=== PATIENT | female | born 1985 | race American Indian/Alaskan Native ===

== ENCOUNTER 2016-06-22 11:23 | Inpatient (IN) | payer OTHER ==
[2016-06-22] MEDS ORDERED: LACTATED RINGERS 1,000 ML ONE (11:39)
[2016-06-22] MEDS ORDERED: MINERAL OIL PO PRN (11:46)
[2016-06-22] MEDS ORDERED: BRETHINE SUB-Q PRN (11:46)
[2016-06-22] MEDS ORDERED: ePHEDrine SULFATE IV PRN ×2 (11:46→16:00)
[2016-06-22] MEDS ORDERED: ZOFRAN IV PRN (11:46)
[2016-06-22] MEDS ORDERED: STADOL IV PRN (11:46)
[2016-06-22] MEDS ORDERED: SUBLIMAZE IV PRN (11:46)
[2016-06-22] MEDS ORDERED: BRETHINE IVP PRN (11:46)
[2016-06-22] MEDS ORDERED: XYLOCAINE 2% INFILTRATI ONE (11:46)
--- NOTE | 2016-06-22 11:53 | History and Physical Report ---
History of Present Illness Date of examination: 06/22/16 Date of admission: 06/22/16 11:23 Chief complaint: Labor History of present illness: 31 YO at 39.6 weeks in active labor. A patient of [employer] since 10 weeks. 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 GBS negative. Plans for cord blood banking. Past History Past Medical History: hematologic disorders (beta thalassemia minor) Past Surgical History: no surgical history Family/Genetic History: none Social history: single, full code. denies: smoking, alcohol abuse, prescription drug abuse, IV drug use - Obstetrical History Expected Date of Delivery: 06/23/16 Actual Gestation: 39 Week(s) 6 Day(s) : 2 Para: 1 Hx # Term Pregnancies: 1 Number of Pregnancies: 0 Spontaneous Abortions: 0 Induced : 0 Number of Living Children: 1 #1 Infant Gender: Male year: Birthweight: 8 lb 8 oz Method of Delivery: Vaginal Gestational age at delivery: 40 Complications: none Review of Systems All systems: negative - Physical Exam Cardiovascular: Regular rate Lungs: Positive: Normal air movement Vagina: Positive: normal moisture Extremities: Positive: normal Deep Tendon Reflex Grade: Normal +2 Results All other labs normal. Assessment and Plan A: IUP 39.6 weeks Beta thalassemia minor Category 1 tracing Desires epidural GBS negative P: Admit to L&D Pitocin augmentation Epidural/pain meds as desired.
[2016-06-22] MEDS ORDERED: PITOCin/NS 20 UNIT/1000ML DRIP 20 UNITS/1,000 ML BAG IV SCH (12:00)
[2016-06-22] MEDS ORDERED: PITOCin/NS 30 UNIT/500ML 30 UNITS/500 ML BAG IV SCH (12:00)
[2016-06-22 12:21] LABS: Hematocrit 34.1 % (30.3-42.9); Mean Corpuscular HGB Conc 32 % (30-34); Platelet Count 231 K/mm3 (140-440); Red Blood Count 5.51 M/mm3 (3.65-5.03); Red Cell Distribution Width 16.9 % (13.2-15.2); White Blood Count 8.1 K/mm3 (4.5-11.0)
[2016-06-22 12:25] LABS: Mean Corpuscular Hemoglobin 20 pg (28-32); Mean Corpuscular Volume 62 fl (79-97)
[2016-06-22] MEDS: LACTATED RINGERS 1,000 ML IV SCH ×2 (12:30→16:22)
[2016-06-22] MEDS ORDERED: ePHEDrine SULFATE ONE (13:15)
--- NOTE | 2016-06-22 14:14 | Ultrasound Report ---
OB LIMITED INDICATION: Presentation. COMPARISON: None similar at this institution. TECHNIQUE: Transabdominal grayscale ultrasound with Doppler interrogation. Gestation: Persaud Position: Cephalic Amniotic Fluid: WNL (7-24 cm) JOAO = 11.2 cm Heart Rate: 152 BPM
--- NOTE | 2016-06-22 15:48 | Anesthesia Consultation ---
Anesthesia Consult and Med Hx Date of service: 06/22/16 - Airway Anesthetic Teeth Evaluation: Good ROM Head & Neck: Adequate Mental/Hyoid Distance: Adequate Mallampati Class: Class II Intubation Access Assessment: Probably Good - Pre-Operative Health Status ASA Pre-Surgery Classification: ASA2 Proposed Anesthetic Plan: Epidural, Spinal - Pulmonary Hx Asthma: No COPD: No Hx Pneumonia: No - Cardiovascular System Hx Hypertension: No - Central Nervous System Hx Seizures: No Hx Psychiatric Problems: No - Endocrine Hx Renal Disease: No Hx End Stage Renal Disease: No Hx Hypothyroidism: No Hx Hyperthyroidism: No - Hematic Hx Anemia: Yes (Beta-talesemia) Hx Sickle Cell Disease: No - Other Systems Hx Alcohol Use: No
[2016-06-22] MEDS ORDERED: fentaNYL-BUPIV 2 MCG/ML-0.125% 200 MCG/100 ML BAG EPIDURAL SCH (16:00)
[2016-06-22] MEDS ORDERED: NARCAN 2 MG/2 ML IV PRN (16:00)
--- NOTE | 2016-06-22 20:06 | Procedure Note ---
OB Delivery Note - Delivery Date of Delivery: 06/22/16 (193) Surgeon: DEVAN GONZALES Estimated blood loss: 200cc - Vaginal Delivery presentation: vertex Delivery position: OA Intrapartum events: none Delivery induction: none Delivery augmentation: pitocin Delivery monitor: external FHT, external uterine Route of delivery: Delivery placenta: spontaneous Delivery cord: 3 umbilical vessels Episiotomy: none Delivery laceration: none Anesthesia: epidural Delivery comments: Baby júnior Fierro was delivered on 06/22/2016 @ 1930 over an intact perineum. Cord was clamped and cut and blood for cord blood banking with CBR collected. Placenta delivered raymond side presenting. weighed 7'10 with apgars of 9/9. Fundus firm, midline and 2 cm below umbilicus. Mother and baby doing well. EBL 200. - A at 1 minute: 9 at 5 minutes: 9 Infant Gender: Male
[2016-06-22] MEDS ORDERED: PHENERGAN PO PRN (21:46)
[2016-06-22] MEDS ORDERED: TYLENOL PO PRN (21:46)
[2016-06-22] MEDS ORDERED: MILK OF MAGNESIA PO PRN (21:46)
[2016-06-22] MEDS ORDERED: TUCKS PAD TP PRN (21:46)
[2016-06-22] MEDS ORDERED: LANSINOH TP PRN (21:46)
[2016-06-22] MEDS ORDERED: BENADRYL PO PRN (21:46)
[2016-06-22] MEDS ORDERED: DULCOLAX PR PRN (21:46)
[2016-06-22] MEDS ORDERED: SODIUM CHLORIDE FLUSH SYRINGE 10 ML IV NR (21:46)
[2016-06-22] MEDS ORDERED: DERMOPLAST TP PRN (21:46)
[2016-06-22] MEDS ORDERED: NORCO 5/325 PO PRN (21:46)
[2016-06-22] MEDS: MOTRIN PO SCH (22:50)
[2016-06-23] MEDS: MOTRIN PO SCH ×4 (06:02→20:38)
[2016-06-23 08:48] LABS: Hematocrit 28.8 % (30.3-42.9); Hemoglobin 9.3 gm/dl (10.1-14.3)
--- NOTE | 2016-06-23 10:15 | Progress Note ---
Assessment and Plan A: PP Day #1 Asymptomatic Anemia P: Follow Routine Orders D/C home in the AM RTO in one week for circumcision RTO in 6 Weeks for PP Exam Subjective - Subjective Date of service: 06/23/16 Patient reports: appetite normal, voiding normally, pain well controlled, flatus , ambulating normally : doing well Objective - Vital Signs Latest vital signs: Vital Signs Temp Pulse Pulse Resp BP BP Pulse Ox 06/23/16 08:48 97.6 F 74 20 109/60 06/23/16 04:00 98.6 F 70 16 116/72 06/23/16 00:00 98.6 F 65 16 110/65 06/22/16 22:29 98.6 F 77 16 111/58 06/22/16 20:51 83 96/52 06/22/16 20:37 75 105/55 06/22/16 20:21 88 102/85 06/22/16 20:06 81 97/56 06/22/16 19:38 94 H 179/66 06/22/16 19:24 85 98 06/22/16 19:19 99 H 98 06/22/16 19:14 87 98 06/22/16 19:11 97.8 F 82 20 112/65 99 06/22/16 19:09 86 100 06/22/16 19:08 83 112/65 06/22/16 19:04 83 99 06/22/16 18:59 76 98 06/22/16 18:54 83 98 06/22/16 18:49 82 100 06/22/16 18:44 85 99 06/22/16 18:39 81 100 06/22/16 18:38 80 110/62 06/22/16 18:34 79 100 06/22/16 18:29 78 100 06/22/16 18:24 81 99 06/22/16 18:19 80 99 06/22/16 18:14 81 100 06/22/16 18:09 75 118/62 100 06/22/16 18:04 75 99 06/22/16 17:59 75 99 06/22/16 17:54 84 99 06/22/16 17:49 78 100 06/22/16 17:44 71 99 06/22/16 17:39 79 100 06/22/16 17:38 78 107/55 06/22/16 17:34 74 99 06/22/16 17:29 76 99 06/22/16 17:24 79 99 06/22/16 17:19 78 99 06/22/16 17:14 77 100 06/22/16 17:09 81 99 06/22/16 17:04 75 99 06/22/16 17:00 76 109/59 06/22/16 16:59 77 99 06/22/16 16:54 80 89 06/22/16 16:49 80 98 06/22/16 16:46 82 93 06/22/16 16:44 80 96 06/22/16 16:40 78 106/56 06/22/16 16:39 79 96 06/22/16 16:34 76 98 06/22/16 16:29 78 100 06/22/16 16:24 78 98 06/22/16 16:19 78 107/55 98 06/22/16 16:14 72 98 06/22/16 16:12 76 106/58 06/22/16 16:09 92 H 98 06/22/16 16:07 75 103/56 06/22/16 16:04 77 107/57 98 06/22/16 15:59 80 98 06/22/16 15:58 137 H 119/54 06/22/16 15:54 78 114/53 96 06/22/16 15:49 87 97 06/22/16 15:48 81 110/58 06/22/16 15:43 84 98 06/22/16 15:42 82 110/60 06/22/16 15:40 79 107/62 06/22/16 15:39 89 98 06/22/16 15:38 86 101/64 06/22/16 15:36 69 100/58 06/22/16 15:34 77 101/58 100 06/22/16 15:32 85 102/59 06/22/16 15:30 76 110/62 06/22/16 15:29 81 99 06/22/16 15:28 91 H 110/63 06/22/16 15:26 81 109/61 06/22/16 15:24 84 99 06/22/16 13:14 89 98 06/22/16 13:13 86 112/65 06/22/16 12:16 78 99 06/22/16 12:11 83 121/65 100 06/22/16 12:00 987 F H 18 Intake and Output 06/22/16 06/23/16 06/23/16 22:59 06:59 14:59 Intake Total 1280 1050 360 Output Total 2100 600 Balance 1280 -1050 -240 Intake: IV 1280 250 Lactated Ringers 1,000 ml 1000 @ 125 mls/hr IV DIRECT ROCÍO Rx#:[id number] PITOCin/NS 20 UNIT/1000ML 280 250 DRIP 20 units In 1,000 ml @ 125 mls/hr IV DIRECT ROCÍO Rx#:[id number] Oral 360 Intake, Free Water 800 Output: Urine 2100 600 Void 2100 600 Other: Total, Intake Amount 360 Total, Output Amount 700 600 # Voids Void 1 1 Estimated Blood Loss 200 - Exam Breasts: Present: normal Cardiovascular: Present: Regular rate Lungs: Present: Clear to auscultation, Normal air movement Abdomen: Present: normal appearance, soft, normal bowel sounds Uterus: Present: normal, firm, fundal height below umbilicus Extremities: Present: normal - Labs Labs: Abnormal lab results 06/22/16 06/23/16 Range/Units 12:00 08:27 RBC 5.51 H (3.65-5.03) M/mm3 Hgb 9.3 L (10.1-14.3) gm/dl Hct 28.8 L (30.3-42.9) % MCV 62 L (79-97) fl MCH 20 L (28-32) pg RDW 16.9 H (13.2-15.2) %
--- NOTE | 2016-06-23 10:17 | Discharge Summary ---
Providers - Providers Date of Admission: 06/22/16 11:23 Date of discharge: 06/24/16 Attending physician: CAIN YEAGER MD Primary care physician: CAIN YEAGER MD Hospitalization Reason for admission: active labor Delivery: Episiotomy: none Laceration: none Other procedures: none complications: none Discharge diagnosis: IUP at term delivered [place] baby: male Condition at discharge: Good Disposition: DISCHARGED TO HOME OR SELFCARE Plan - Provider Discharge Summary Activity: routine, no sex for 6 weeks, no heavy lifting 4 weeks, no strenuous exercise Diet: routine Instructions: routine Additional instructions: [] Smoking cessation referral if applicable(refer to patient education folder for contact #) [] Refer to [facility] Booklet Call your doctor immediately for: * Fever > 100.5 * Heavy vaginal bleeding ( >1 pad per hour) * Severe persistent headache * Shortness of breath * Reddened, hot, painful area to leg or breast * Drainage or odor from incision. * Keep incision clean and dry at all times and follow doctor's instructions regarding bathing/showering - Follow up plan Follow up: ALVARO BREWSTER CNM [Advanced Practice Nurse] - 6 Weeks
--- NOTE | 2016-06-23 13:43 | Progress Note ---
Subjective Date of service: 06/23/16 Interval history: 1st day after normal vaginal delivery Patient is in the room, comfortable. Pain is well under control. No nausea or vomiting. Ambulated well. No residual neurological deficit. No anesthesia complications. Objective - Constitutional Vitals: Vital Signs - 12hr 06/23/16 06/23/16 06/23/16 04:00 08:48 10:53 Temperature 98.6 F 97.6 F Pulse Rate [ 70 74 From Monitor] Respiratory 16 20 16 Rate Blood Pressure 116/72 109/60 [Right Arm] - Labs CBC & Chem 7: 06/23/16 08:27 Labs: Abnormal lab results 06/23/16 Range/Units 08:27 Hgb 9.3 L (10.1-14.3) gm/dl Hct 28.8 L (30.3-42.9) %
[2016-06-24] MEDS: MOTRIN PO SCH ×2 (05:38→13:05)
[2016-06-24] MEDS ORDERED: FLUARIX QUAD 2016-2017(36 MOS+) IM ONE (14:24)
[2016-06-24 15:39] VITALS: BP 121/68
== END 2016-06-24 15:30 | disposition home or self-care (01) | DRG 775 ==
LOC: LD 11:23 → OB 21:40
PROVIDERS: ADMIT Obstetrics & Gynecology; ATTEND Obstetrics & Gynecology
PROC: 10E0XZZ Delivery of Products of Conception, External Approach (ICD-10-PCS; principal; 2016-06-22)
PROC: 00HU33Z Insertion of Infusion Device into Spinal Canal, Percutaneous Approach (ICD-10-PCS; 2016-06-22)
PROC: 3E0R3CZ (ICD-10-PCS; 2016-06-22)
PROC: 3E0234Z Introduction of Serum, Toxoid and Vaccine into Muscle, Percutaneous Approach (ICD-10-PCS; 2016-06-22)
DX: O99.02 Anemia complicating childbirth (principal); O99.12 Other diseases of the blood and blood-forming organs and certain disorders involving the immune mechanism complicating childbirth; D56.3 Thalassemia minor; Z3A.39 39 weeks gestation of pregnancy; Z37.0 Single live birth
CPT/HCPCS: 36415; 76815; 85014; 85018; 85027; 86850; 86900; 86901; 90471; 90686; 99211; G0008; G0463; J2590; J7120